=== PATIENT | male | born 1940 | race Caucasian/White ===

== ENCOUNTER → 2016-12-16 | Outpatient (CLI) | payer OTHER ==
[~2016-12-16] MED LIST: ACET-1600 PO; ALLO100T30 PO; ALLO300T PO; CYAN1TAB29 PO; FEXO180T72 PO; FLUT9.9S NS; GABA300C10 PO; LACT1CAP35 PO; LEVO100T5 PO; MAGN1TAB PO; NIAC500T8 PO; RABE20TA5 PO; RANI150C PO; ZOLP10TA5 PO; alkalol PO; vitamin d3 PO
[2016-12-16 16:16] LABS: HEMATOCRIT 52.4 % (39.2-51.8); HEMOGLOBIN 17.7 g/dL (13.7-18.0); WHITE BLOOD COUNT 7.4 x10^3/uL (3.4-10)
== END | disposition home or self-care (01) ==
LOC: STAR 14:35
PROVIDERS: ATTEND Otolaryngology
DX: Z01.818 Encounter for other preprocedural examination (principal); J32.0 Chronic maxillary sinusitis; J32.2 Chronic ethmoidal sinusitis
CPT/HCPCS: 36415; 85025; 93005

== ENCOUNTER 2016-12-25 10:58 | Day surgery (SDC) | payer OTHER ==
[~2016-12-25] VITALS: Ht 170.2 cm; Wt 70.0 kg
[~2016-12-25 10:58] MED LIST changes: +RABE20TA18 PO; -RABE20TA5 PO
[2016-12-25] MEDS ORDERED: LACTATED RINGERS 1,000 ML IV SCH (11:38)
[2016-12-25 11:39] VITALS: BP 165/94
[2016-12-25] MEDS ORDERED: BUPIVACAINE/PF 0.5% ONE (12:29)
[2016-12-25] MEDS ORDERED: OXYMETAZOLINE NASAL SPRAY 0.05%, 15ML ONE (12:29)
[2016-12-25] MEDS ORDERED: BACITRACIN OINT 500U/GM, 15 GM ONE (12:30)
[2016-12-25] MEDS ORDERED: COCAINE TOPICAL SOLN 4%, 4ML ONE (12:30)
[2016-12-25] MEDS ORDERED: BACITRACIN ZINC OINT 500U/GM, 0.9 GM ONE (12:32)
[2016-12-25] MEDS ORDERED: ONDANSETRON 2MG/ML, 2ML ONE (12:53)
[2016-12-25] MEDS ORDERED: ROCURONIUM 10 MG/ML ONE (12:53)
[2016-12-25] MEDS ORDERED: PROPOFOL 10 MG/ML, 20ML ONE (12:53)
[2016-12-25] MEDS ORDERED: NEOSTIGMINE 1 MG/ML, 10ML ONE (12:53)
[2016-12-25] MEDS ORDERED: GLYCOPYRROLATE 0.2MG/1ML ONE (12:53)
[2016-12-25] MEDS ORDERED: DEXAMETHASONE 4 MG/ML, 5ML ONE (12:53)
[2016-12-25] MEDS ORDERED: FENTANYL PF 100 MCG/2ML ONE ×2 (12:56→13:54)
[2016-12-25] MEDS ORDERED: EPHEDRINE 50 MG/ML, 1ML IVPush PRN (13:30)
[2016-12-25] MEDS ORDERED: ONDANSETRON 2MG/ML, 2ML IVPush PRN (13:30)
[2016-12-25] MEDS ORDERED: OXYcodone 5 MG/5 ML ORAL.SOL UDC PO PRN (13:30)
[2016-12-25] MEDS ORDERED: ALBUTEROL SULFATE 2.5 MG/3 ML NPPB PRN (13:30)
[2016-12-25] MEDS ORDERED: LABETALOL 5MG/ML, 20ML IV PRN (13:30)
[2016-12-25] MEDS ORDERED: HYDROmorphone 1 MG/ML, 1ML IV PRN (13:30)
[2016-12-25] MEDS ORDERED: FENTANYL PF 100 MCG/2ML IV PRN (13:30)
[2016-12-25] MEDS ORDERED: METOPROLOL 1 MG/ML, 5ML IV PRN (13:30)
[2016-12-25] MEDS ORDERED: PROMETHAZINE 25 MG/ML, 1ML IV PRN (13:30)
[2016-12-25] MEDS ORDERED: ACETAMINOPHEN 325 MG TABLET PO PRN (13:30)
[2016-12-25] MEDS ORDERED: THROMBIN 5,000 UNIT VIAL TP ONE (13:33)
[2016-12-25] MEDS ORDERED: ACETAMINOPHEN 650 MG/20.3 ML UDC ONE (13:54)
[2016-12-25] MEDS ORDERED: hydrALAzine 20 MG/ML, 1ML ONE (13:54)
[2016-12-25] MEDS ORDERED: OXYcodone 5 MG/5 ML ORAL.SOL UDC ONE (13:55)
[2016-12-25] MEDS: hydrALAzine 20 MG/ML, 1ML IV PRN ×2 (13:57→15:04)
== END 2016-12-25 16:35 | disposition home or self-care (01) ==
LOC: OUT 10:58
PROVIDERS: ATTEND Otolaryngology
DX: J32.0 Chronic maxillary sinusitis (principal); J32.2 Chronic ethmoidal sinusitis; E03.9 Hypothyroidism, unspecified; K21.9 Gastro-esophageal reflux disease without esophagitis; Z88.1 Allergy status to other antibiotic agents; M10.9 Gout, unspecified
CPT/HCPCS: 31255; 31256; 88304; J0360; J1100; J2405; J2704; J2710; J3010; J3490; J7120